=== PATIENT | female | born 1985 | race Caucasian/White ===

== ENCOUNTER 2021-02-21 01:47 | Emergency (ER) | payer MEDICAID, OTHER ==
[~2021-02-21] VITALS: Ht 175.3 cm; Wt 113.4 kg
[2021-02-21 01:47] VITALS: BP 129/74
[2021-02-21] MEDS ORDERED: LIDOCAINE 1% HCL (LOCAL ANESTH.) INJ 20ML MDV IJ ONE (05:15)
[2021-02-21] MEDS ORDERED: TETANUS-DIPTH-ACEL PERTUSSIS 0.5ML SYR Tdap IM ONE (05:15)
== END 2021-02-21 06:55 | disposition home or self-care (01) ==
LOC: ER 01:50
DX: S61.217A Laceration without foreign body of left little finger without damage to nail, initial encounter (principal); S60.415A Abrasion of left ring finger, initial encounter; S60.413A Abrasion of left middle finger, initial encounter; W25.XXXA Contact with sharp glass, initial encounter; Y93.89 Activity, other specified; Y92.89 Other specified places as the place of occurrence of the external cause; Y99.8 Other external cause status
CPT/HCPCS: 12002; 73200